=== PATIENT | female | born 1995 | race Caucasian/White ===

== ENCOUNTER 2016-11-30 03:50 | Emergency (ER) | payer MEDICAID ==
--- NOTE | 2016-11-30 04:24 | EDM.PDOC ---
ED HPI GENERAL MEDICAL PROBLEM - General Chief Complaint: Abdominal Pain Stated Complaint: ABD PAIN Time Seen by Provider: 11/30/16 04:10 Source of Information: Reports: Patient History Limitations: Reports: No Limitations - History of Present Illness INITIAL COMMENTS - FREE TEXT/NARRATIVE: 20 yo obese female presents with RUQ abdominal pain with some radiation to her back that began tonight and woke her from sleep. Pain is now starting to subside. Ate a greasy meal for dinner. No hx of the same. Is 20 weeks with her 4th . No fever. Onset: Today Onset Date: 11/30/16 Onset Time: 23:30 Duration: Hour(s):, Improving Location: Reports: Abdomen (RUQ) Quality: Reports: Pressure Severity: Moderate Improves with: Reports: Other (time) Worsens with: Reports: Other (? greasy food) Context: Reports: Other (high risk for gallbladder dz) Associated Symptoms: Reports: No Other Symptoms Treatments STATION ATTENDANT: Reports: Other (see below) (none) Other Treatments STATION ATTENDANT: Hot shower. Rest. Respositioning. - Related Data Allergies Allergy/AdvReac Type Severity Reaction Status Date / Time Pumpkin Allergy Hives Uncoded 11/30/16 04:06 Home Meds: Home Meds PNV95/Ferrous Fumarate/FA [ Tablet] 1 each PO DAILY 11/30/16 [History] ED ROS GENERAL - Review of Systems Review Of Systems: See Below Constitutional: Reports: No Symptoms Respiratory: Reports: No Symptoms Cardiovascular: Reports: No Symptoms GI/Abdominal: Reports: Abdominal Pain : Reports: No Symptoms Musculoskeletal: Reports: No Symptoms Skin: Reports: No Symptoms Neurological: Reports: No Symptoms Psychiatric: Reports: No Symptoms ED EXAM, GI/ABD - Physical Exam Exam: See Below Exam Limited By: No Limitations General Appearance: Alert, WD/WN, No Apparent Distress, Obese Eyes: Bilateral: Normal Appearance Ears: Normal External Exam, Normal Canal, Hearing Grossly Normal, Normal TMs Nose: Normal Inspection, Normal Mucosa, No Blood Throat/Mouth: Normal Inspection, Normal Lips, Normal Teeth, Normal Oropharynx, Normal Voice, No Airway Compromise Head: Atraumatic, Normocephalic Neck: Normal Inspection, Supple Respiratory/Chest: No Respiratory Distress, Lungs Clear, Normal Breath Sounds, No Accessory Muscle Use, Chest Non-Tender Cardiovascular: Regular Rate, Rhythm GI/Abdominal Exam: Normal Bowel Sounds, Soft, No Distention, Guarding, Tender ( Over RUQ, gallbladder), Other (obese, striae, gravid). No: Rigid, Rebound, Hernia (Female) Exam: Enlarged Uterus Back Exam: Normal Inspection. No: CVA Tenderness (R), CVA Tenderness (L) Extremities: Pedal Edema (bilaterally without calf pain) Neurological: Alert, Oriented, CN II-XII Intact, Normal Cognition, No Motor/ Sensory Deficits Psychiatric: Normal Affect, Normal Mood Skin Exam: Warm, Dry, Intact, Normal Color, No Rash Lymphatic: No Adenopathy Course - Vital Signs Text/Narrative:: Pain almost gone in the ER without treatment. Last Recorded V/S: Last Vital Signs Temp 36.3 C 11/30/16 03:58 Pulse 94 11/30/16 03:58 Resp 16 11/30/16 03:58 BP 121/75 11/30/16 03:58 Pulse Ox 98 11/30/16 03:58 - Orders/Labs/Meds Labs: Laboratory Tests 11/30/16 11/30/16 Range/Units 04:25 04:25 WBC 7.1 (4.5-12.0) X10-3/uL RBC 3.91 (3.23-5.20) x10(6)uL Hgb 12.0 (11.5-15.5) g/dL Hct 34.9 (30.0-51.3) % MCV 89.2 (80-96) fL MCH 30.8 (27.7-33.6) pg MCHC 34.5 (32.2-35.4) g/dL RDW 13.9 (11.5-15.5) % Plt Count 149 (125-369) X10(3)uL Alkaline Phosphatase 57 (56-112) IU/L Departure - Departure Time of Disposition: 04:46 Disposition: Home, Self-Care 01 Condition: Good Clinical Impression: Gallbladder attack - Discharge Information Forms: ED Department Discharge
[2016-11-30 04:59] VITALS: BP 119/61
== END 2016-11-30 04:53 | disposition home or self-care (01) ==
LOC: FB.ED 03:50
DX: O99.612 Diseases of the digestive system complicating pregnancy, second trimester (principal); K82.8 Other specified diseases of gallbladder; Z91.018 Allergy to other foods; Z3A.20 20 weeks gestation of pregnancy
CPT/HCPCS: 36415; 84075; 85027; 99283

== ENCOUNTER 2017-04-12 06:49 | Inpatient (IN) | payer MEDICAID ==
[2017-04-12] MEDS ORDERED: Misoprostol 25 MCG (1/4 of 100 MCG) Tab VAG ONE (07:03)
[2017-04-12] MEDS ORDERED: Sodium Chloride 0.9% 10 ML Syringe FLUSH PRN (08:09)
--- NOTE | 2017-04-12 09:11 | PCM.LDHP ---
L&D History of Present Illness - General Date of Service: 04/12/17 Admit Problem/Dx: Patient Status Order with Admit Dx/Problem 04/12/17 07:00 Admission Status [Patient Status] [ADT] Routine Admission Diagnosis/Problem Admission Diagnosis/Problem Source of Information: Patient History Limitations: Reports: No Limitations - History of Present Illness Introduction:: 21-year-old at term here for induction. She has a history of macrosomia, history of gestational hypertension previous pregnancies. In this current ,fetus estemated to be at 86% percentile,but she's had two-vessel placenta discovered in the second trimester ultrasound She's being induced at 39 weeks for those reasons. - Related Data Allergies/Adverse Reactions: Allergies Allergy/AdvReac Type Severity Reaction Status Date / Time Pumpkin Allergy Hives Uncoded 04/02/17 21:05 Home Medications: Home Meds PNV95/Ferrous Fumarate/FA [ Tablet] 1 each PO DAILY 11/30/16 [History] Past Medical History Cardiovascular History: Reports: Other (See Below) Other Cardiovascular History: hx of gestational hypertension wiht her 3 previous pregnancies. Gastrointestinal History: Reports: Cholelithiasis, GERD Genitourinary History: Reports: Other (See Below) Other Genitourinary History: hx of HPV infection in 2016 [employer] LE[employer] History: Reports: , Other (See Below) Other OB/BYN History: States this is her fourth ; abnormal pap smear, hx of large babies, Psychiatric History: Reports: Depression, Other (See Below) Other Psychiatric History: states had pp depression after her 2nd delivery for about1-2 months Hematologic History: Reports: Anemia - Infectious Disease History Infectious Disease History: Reports: Chicken Pox - Past Surgical History Oncologic Surgical History: Reports: Other (See Below) Other Oncologic Surgeries/Procedures: cryotherapy for HPV Social & Family History - Family History Family Medical History: Noncontributory - Tobacco Use Smoking Status *Q: Never Smoker Second Hand Smoke Exposure: No - Caffeine Use Caffeine Use: Reports: Coffee - Recreational Drug Use Recreational Drug Use: No H&P Review of Systems - Review of Systems: Review Of Systems: ROS reveals no pertinent complaints other than HPI. L&D Exam - Exam Exam: See Below - Vital Signs Vital Signs: Last Vital Signs Temp Pulse 91 04/12/17 07:02 Resp 18 04/12/17 07:02 BP 134/75 04/12/17 07:02 Pulse Ox 100 04/12/17 07:02 Weight: 106.141 kg - OB Specific Contraction Duration (sec): 0 Contraction Frequency (min): 0 - Exam General: Alert, Oriented HEENT: PERRLA, Conjunctiva Clear, EACs Clear, EOMI, Hearing Intact, Mucosa Moist & [place], Nares Patent, Normal Nasal Septum, Posterior Pharynx Clear, TMs Clear Neck: Supple, Trachea Midline Lungs: Clear to Auscultation, Normal Respiratory Effort Cardiovascular: Regular Rate, Regular Rhythm GI/Abdominal Exam: Normal Bowel Sounds, Soft, Non-Tender, No Organomegaly, No Distention, No Abnormal Bruit, No Mass, Pelvis Stable Rectal Exam: Normal Exam, Normal Rectal Tone Genitourinary: Normal external exam, Normal bimanual exam, Normal speculum exam Back Exam: Normal Inspection, Full Range of Motion Extremities: Normal Inspection, Normal Range of Motion, Non-Tender, No Pedal Edema, Normal Capillary Refill Skin: Warm, Dry, Intact Neurological: Cranial Nerves Intact, Reflexes Equal Bilateral Psychiatric: Alert, Normal Affect, Normal Mood - Problem List (1) Elective induction of labor planned SNOMED Code(s): 668872069 ICD Code: [id number] - Status: Acute Current Visit: Yes (2) H/O macrosomia in infant in prior , currently SNOMED Code(s): 565098434 ICD Code: O09.299 - SUPRVSN OF PREG W POOR REPRODCTV OR OBSTET HISTORY, UNSP TRI Status: Acute Current Visit: Yes (3) History of pre-eclampsia SNOMED Code(s): 852287464535201 ICD Code: Z87.59 - PERSONAL HISTORY OF COMP OF PREG, CHLDBRTH AND THE PUERP Status: Acute Current Visit: Yes (4) Obesity SNOMED Code(s): 436722114 ICD Code: E66.9 - OBESITY, UNSPECIFIED Status: Acute Current Visit: Yes (5) Two vessel umbilical cord in gomez , antepartum SNOMED Code(s): 612680918 ICD Code: O09.899 - SUPERVISION OF OTHER HIGH RISK PREGNANCIES, UNSP TRIMESTER Status: Acute Current Visit: Yes Problem List Initiated/Reviewed/Updated: Yes Orders Last 24hrs: Active Orders 24 hr Category Date Time Status Admission Status [Patient Status] [ADT] Routine ADT 04/12/17 07:00 Active Communication Order [RC] ASDIRECTED Care 04/12/17 08:11 Active Communication Order [RC] ASDIRECTED Care 04/12/17 08:11 Active Communication Order [RC] ASDIRECTED Care 04/12/17 08:11 Active Communication Order [RC] ASDIRECTED Care 04/12/17 08:11 Active Notify Provider [RC] PRN Care 04/12/17 08:11 Active Notify Provider [RC] STAT Care 04/12/17 08:11 Active Vital Signs [RC] PER UNIT ROUTINE Care 04/12/17 08:11 Active Nothing per Oral Now Diet [DIET] Diet 04/12/17 Breakfast Active Sodium Chloride 0.9% [Saline Flush] Med 04/12/17 08:09 Active 10 ml FLUSH ASDIRECTED PRN Peripheral IV Insertion Adult [OM.PC] Urgent Oth 04/12/17 08:09 Ordered Code Status [Resuscitation Status] Routine Resus Stat 04/12/17 08:11 Ordered Medication Orders Sodium Chloride (Saline Flush) 10 ml FLUSH ASDIRECTED PRN PRN Reason: Keep Vein Open Assessment/Plan Comment:: We'll start with Cytotec induction, and then Pitocin. Risks and benefits of the medications and induction proceeded been discussed with the family and in agreement.
[2017-04-12] MEDS ORDERED: Oxytocin/Normal Saline 10 UNIT/1,000 ML BAG IV SCH (12:15)
[2017-04-12] MEDS: Lactated Ringers 1,000 ML IV SCH ×2 (13:43→19:39)
[2017-04-12] MEDS ORDERED: ePHEDrine 50 MG/ML SDV IVPUSH PRN ×2 (15:15→16:57)
[2017-04-12] MEDS ORDERED: Naloxone 0.4 MG/ML SDV IVPUSH PRN ×2 (15:15→16:57)
[2017-04-12] MEDS ORDERED: fentaNYL 100 MCG/2 ML SDV EPIDUR ONE ×2 (15:37)
[2017-04-12] MEDS ORDERED: fentaNYL 300 MCG in Ropivacaine 200 ML EPIDUR ONE (15:37)
[2017-04-12] MEDS ORDERED: hydrOXYzine HCl 50 MG/ML SDV IM PRN ×2 (16:57)
[2017-04-12] MEDS ORDERED: Naloxone 0.4 MG in Sodium Chloride 0.9% 100 ML IV PRN (16:57)
[2017-04-12] MEDS ORDERED: Promethazine 25 MG/ML SDV IV PRN (16:57)
[2017-04-12] MEDS ORDERED: diphenhydrAMINE 50 MG/ML SDV IVPUSH PRN (16:57)
[2017-04-12] MEDS ORDERED: Ondansetron 4 MG/2 ML SDV IVPUSH PRN (16:59)
[2017-04-12] MEDS ORDERED: Acetaminophen/Codeine 300-30 MG Tab PO PRN (18:10)
--- NOTE | 2017-04-12 18:16 | PCM.DEL ---
L & D Note - General Info Date of Service: 04/12/17 - Delivery Note Labor: Spontaneous, Augmented by Oxytocin Cervical Ripening Method: Prostaglandin E2 Delivery Outcome: Livebirth Delivery Method: Spontaneous Vaginal Delivery-Single Anesthesia Type: Epidural Laceration: None Placenta: Intact, Spontaneous Cord: 2 Vessels Resuscitation Needed: No Delivery Comments (Free Text/Narrative):: Called to bedside. By the time I got there,baby already pushed out. Live male . I then delivered placenta ,2 vessel,intact ,by gentle traction.Small superficial tear,midline,no need for sutures. EBL less 300 cc Induction Criteria - Odell Score Odell Score Dilation: 1-2 cm Odell Score Effacement: 60-70% Odell Score Consistency: Soft Odell Score Cervix Position: Midposition Odell Score Presenting Part: Reports: Cephalic - Induction Gestational Age >/= 39 wks: Yes Estimated Pelvis: Reports: Adequate Reassuring Monitoring Strip: Yes - Augmentation Estimated Pelvis: Reports: Adequate Reassuring Monitoring Strip: Yes - General Info Date of Service: 04/12/17 - Review of Systems General: Reports: No Symptoms HEENT: Reports: No Symptoms Pulmonary: Reports: No Symptoms Cardiovascular: Reports: No Symptoms Gastrointestinal: Reports: No Symptoms Genitourinary: Reports: No Symptoms Musculoskeletal: Reports: No Symptoms Skin: Reports: No Symptoms Neurological: Reports: No Symptoms Psychiatric: Reports: No Symptoms - Patient Data Vitals - Most Recent: Last Vital Signs Temp Pulse 91 04/12/17 07:02 Resp 18 04/12/17 07:02 BP 134/75 04/12/17 07:02 Pulse Ox 100 04/12/17 07:02 Weight - Most Recent: 106.141 kg I&O - Last 24 Hours: Intake & Output 04/12/17 04/12/17 04/12/17 06:59 14:59 22:59 Output Total 5 Balance -5 Med Orders - Current: Current Medications Acetaminophen/Codeine Phosphate (Tylenol With Codeine No.3 300mg/30mg) 1 tab PO Q4H PRN PRN Reason: Pain (moderate 4-6) Diphenhydramine HCl (Benadryl) 25 mg IVPUSH ASDIRECTED PRN PRN Reason: PRURITUS Ephedrine Sulfate (Ephedrine Sulfate) 5 mg IVPUSH ONETIME PRN PRN Reason: HYPOTENSION Ephedrine Sulfate (Ephedrine Sulfate) 5 mg IVPUSH ASDIRECTED PRN PRN Reason: HYPOTENSION Hydroxyzine HCl (Vistaril) 0 mg IM Q6H PRN PRN Reason: PRURITIS Hydroxyzine HCl (Vistaril) 0 mg IM Q4H PRN PRN Reason: N/V Oxytocin/Sodium Chloride (Pitocin In Ns 10 Units/1,000 Ml) 10 unit in 1,000 mls @ 12 mls/hr IV TITRATE ANASTACIO; 2 MUNITS/MIN PRN Reason: Protocol Last Titration: 04/12/17 13:42 Dose: 6 munits/min, 36 mls/hr Lactated Ringer's (Ringers, Lactated) 1,000 mls @ 125 mls/hr IV ASDIRECTED ANASTACIO Last Admin: 04/12/17 13:43 Dose: 125 mls/hr Naloxone HCl 0.4 mg/ Sodium (Chloride) 101 mls @ 25 mls/hr IV ASDIRECTED PRN PRN Reason: PER ORDER OF ANESTHESIA Ibuprofen (Motrin) 600 mg PO Q4H PRN PRN Reason: Pain Naloxone HCl (Narcan) 0.1 mg IVPUSH ONETIME PRN PRN Reason: Sedation Naloxone HCl (Narcan) 0.1 mg IVPUSH ASDIRECTED PRN PRN Reason: RESPIRATORY STATUS Ondansetron HCl (Zofran) 4 mg IVPUSH Q6H PRN PRN Reason: NAUSEA/VOMITING Promethazine HCl (Phenergan) 6.25 - 12.5 mg IV Q4H PRN PRN Reason: NAUSEA AND VOMITING Sodium Chloride (Saline Flush) 10 ml FLUSH ASDIRECTED PRN PRN Reason: Keep Vein Open Last Admin: 04/12/17 11:58 Dose: 10 ml Discontinued Medications Misoprostol (Cytotec) 25 mcg VAG ONETIME ONE Stop: 04/12/17 07:04 Last Admin: 04/12/17 08:15 Dose: 25 mcg - Exam General: Alert, Oriented HEENT: Pupils Equal, Pupils Reactive, EOMI, Mucous Membr. Moist/[place] Neck: Supple Lungs: Clear to Auscultation, Normal Respiratory Effort Cardiovascular: Regular Rate, Regular Rhythm GI/Abdominal Exam: Normal Bowel Sounds, Soft, Non-Tender, No Organomegaly, No Distention, No Abnormal Bruit, No Mass, Pelvis Stable (Female) Exam: Normal External Exam, Normal Speculum Exam, Normal Bimanual Exam Back Exam: Normal Inspection, Full Range of Motion Extremities: Normal Inspection, Normal Range of Motion, Non-Tender, No Pedal Edema, Normal Capillary Refill Skin: Warm, Dry, Intact Wound/Incisions: Healing Well Neurological: No New Focal Deficit Psy/Mental Status: Alert, Normal Affect, Normal Mood - Problem List & Annotations (1) Elective induction of labor planned SNOMED Code(s): 462396198 Code(s): JTT5153 - Status: Acute Current Visit: Yes (2) H/O macrosomia in in prior , currently SNOMED Code(s): 538592684 Code(s): O09.299 - SUPRVSN OF PREG W POOR REPRODCTV OR OBSTET HISTORY, UNSP TRI Status: Acute Current Visit: Yes (3) History of pre-eclampsia SNOMED Code(s): 207234156519824 Code(s): Z87.59 - PERSONAL HISTORY OF COMP OF PREG, CHLDBRTH AND THE PUERP Status: Acute Current Visit: Yes (4) Obesity SNOMED Code(s): 284712250 Code(s): E66.9 - OBESITY, UNSPECIFIED Status: Acute Current Visit: Yes (5) Two vessel umbilical cord in gomez , antepartum SNOMED Code(s): 180102174 Code(s): O09.899 - SUPERVISION OF OTHER HIGH RISK PREGNANCIES, UNSP TRIMESTER Status: Acute Current Visit: Yes (6) Normal delivery SNOMED Code(s): 77056537 Code(s): O80 - ENCOUNTER FOR FULL-TERM UNCOMPLICATED DELIVERY; Z37.9 - OUTCOME OF DELIVERY, UNSPECIFIED Status: Acute Current Visit: Yes - Problem List Review Problem List Initiated/Reviewed/Updated: Yes - My Orders Last 24 Hours: My Active Orders 04/12/17 08:09 Sodium Chloride 0.9% [Saline Flush] 10 ml FLUSH ASDIRECTED PRN Peripheral IV Insertion Adult [OM.PC] Urgent 04/12/17 08:11 Communication Order [RC] ASDIRECTED Communication Order [RC] ASDIRECTED Communication Order [RC] ASDIRECTED Communication Order [RC] ASDIRECTED Notify Provider [RC] PRN Notify Provider [RC] STAT Vital Signs [RC] PER UNIT ROUTINE Code Status [Resuscitation Status] Routine 04/12/17 12:15 Lactated Ringers [Ringers, Lactated] 1,000 ml IV ASDIRECTED Oxytocin/Normal Saline [Pitocin in NS 10 UNITS/1,000 ML] 10 unit in 1,000 ml IV TITRATE 04/12/17 15:15 Naloxone [Narcan] 0.1 mg IVPUSH ONETIME PRN ePHEDrine [ePHEDrine Sulfate] 5 mg IVPUSH ONETIME PRN 04/12/17 16:30 Admission Status [Patient Status] [ADT] Routine 04/12/17 18:10 Vital Signs [RC] PFP Acetaminophen/Codeine [Tylenol with Codeine No.3 300MG/30MG] 1 tab PO Q4H PRN Ibuprofen [Motrin] 600 mg PO Q4H PRN 04/12/17 Breakfast Nothing per Oral Now Diet [DIET] 04/13/17 05:11 CBC W/O DIFF,HEMOGRAM [HEME] AM - Plan Plan:: Routine post care.
[2017-04-12] MEDS: Ibuprofen 600 MG Tab PO PRN (21:35)
[2017-04-13] MEDS: Ibuprofen 600 MG Tab PO PRN ×2 (02:10→13:02)
--- NOTE | 2017-04-13 08:39 | PCM.PNPP ---
- General Info Date of Service: 04/13/17 Functional Status: Reports: Pain Controlled, Tolerating Diet - Review of Systems General: Reports: No Symptoms HEENT: Reports: No Symptoms Pulmonary: Reports: No Symptoms Cardiovascular: Reports: No Symptoms Gastrointestinal: Reports: No Symptoms Genitourinary: Reports: No Symptoms Musculoskeletal: Reports: No Symptoms Skin: Reports: No Symptoms Neurological: Reports: No Symptoms Psychiatric: Reports: No Symptoms - General Info Date of Service: 04/13/17 - Patient Data Vital Signs - Most Recent: Last Vital Signs Temp 98.2 F 04/13/17 00:00 Pulse 73 04/12/17 21:30 Resp 18 04/13/17 00:00 BP 123/61 04/13/17 00:00 Pulse Ox 98 04/13/17 00:00 Weight - Most Recent: 106.141 kg I&O - Last 24 Hours: Intake & Output 04/12/17 04/13/17 04/13/17 22:59 06:59 14:59 Intake Total 1923 Output Total 5 Balance 1918 Lab Results - Last 24 Hours: Laboratory Results - last 24 hr 04/13/17 Range/Units 06:15 WBC 8.9 (4.5-12.0) X10-3/uL RBC 3.77 (3.23-5.20) x10(6)uL Hgb 9.7 L (11.5-15.5) g/dL Hct 30.0 (30.0-51.3) % MCV 79.7 L (80-96) fL MCH 25.7 L (27.7-33.6) pg MCHC 32.2 (32.2-35.4) g/dL RDW 16.4 H (11.5-15.5) % Plt Count 126 (125-369) X10(3)uL Med Orders - Current: Current Medications Acetaminophen/Codeine Phosphate (Tylenol With Codeine No.3 300mg/30mg) 1 tab PO Q4H PRN PRN Reason: Pain (moderate 4-6) Ephedrine Sulfate (Ephedrine Sulfate) 5 mg IVPUSH ONETIME PRN PRN Reason: HYPOTENSION Oxytocin/Sodium Chloride (Pitocin In Ns 10 Units/1,000 Ml) 10 unit in 1,000 mls @ 12 mls/hr IV TITRATE ANASTACIO; 2 MUNITS/MIN PRN Reason: Protocol Last Titration: 04/12/17 13:42 Dose: 6 munits/min, 36 mls/hr Lactated Ringer's (Ringers, Lactated) 1,000 mls @ 125 mls/hr IV ASDIRECTED ANASTACIO Last Admin: 04/12/17 19:39 Dose: 125 mls/hr Ibuprofen (Motrin) 600 mg PO Q4H PRN PRN Reason: Pain Last Admin: 04/13/17 02:10 Dose: 600 mg Naloxone HCl (Narcan) 0.1 mg IVPUSH ONETIME PRN PRN Reason: Sedation Sodium Chloride (Saline Flush) 10 ml FLUSH ASDIRECTED PRN PRN Reason: Keep Vein Open Last Admin: 04/12/17 11:58 Dose: 10 ml Discontinued Medications Diphenhydramine HCl (Benadryl) 25 mg IVPUSH ASDIRECTED PRN PRN Reason: PRURITUS Ephedrine Sulfate (Ephedrine Sulfate) 5 mg IVPUSH ASDIRECTED PRN PRN Reason: HYPOTENSION Hydroxyzine HCl (Vistaril) 0 mg IM Q6H PRN PRN Reason: PRURITIS Hydroxyzine HCl (Vistaril) 0 mg IM Q4H PRN PRN Reason: N/V Naloxone HCl 0.4 mg/ Sodium (Chloride) 101 mls @ 25 mls/hr IV ASDIRECTED PRN PRN Reason: PER ORDER OF ANESTHESIA Misoprostol (Cytotec) 25 mcg VAG ONETIME ONE Stop: 04/12/17 07:04 Last Admin: 04/12/17 08:15 Dose: 25 mcg Naloxone HCl (Narcan) 0.1 mg IVPUSH ASDIRECTED PRN PRN Reason: RESPIRATORY STATUS Ondansetron HCl (Zofran) 4 mg IVPUSH Q6H PRN PRN Reason: NAUSEA/VOMITING Promethazine HCl (Phenergan) 6.25 - 12.5 mg IV Q4H PRN PRN Reason: NAUSEA AND VOMITING - Interaction Support Person: Significant Other - Recovery Exam Fundal Tone: Firm Fundal Level: 1 Fingerbreadths Above Umbilicus Fundal Placement: Midline Lochia Amount: Moderate Lochia Color: Rubra/Red Perineum Description: Intact, Minimal Bruising/Swelling Episiotomy/Laceration: None Bladder Status: Voiding Urinary Elimination: Not Voiding - Exam General: Alert, Oriented HEENT: Pupils Equal Neck: Supple Lungs: Clear to Auscultation, Normal Respiratory Effort Cardiovascular: Regular Rate, Regular Rhythm GI/Abdominal Exam: Normal Bowel Sounds, Soft, Non-Tender, No Organomegaly, No Distention, No Abnormal Bruit, No Mass, Pelvis Stable Extremities: Normal Inspection, Normal Range of Motion, Non-Tender, No Pedal Edema, Normal Capillary Refill Skin: Warm, Dry, Intact Wound/Incisions: Healing Well Neurological: No New Focal Deficit Psy/Mental Status: Alert, Normal Affect, Normal Mood - Problem List & Annotations (1) Normal delivery SNOMED Code(s): 10250223 Code(s): O80 - ENCOUNTER FOR FULL-TERM UNCOMPLICATED DELIVERY; Z37.9 - OUTCOME OF DELIVERY, UNSPECIFIED Status: Acute Current Visit: Yes (2) Elective induction of labor planned SNOMED Code(s): 358342848 Code(s): RMS5548 - Status: Acute Current Visit: Yes (3) H/O macrosomia in in prior , currently SNOMED Code(s): 226506183 Code(s): O09.299 - SUPRVSN OF PREG W POOR REPRODCTV OR OBSTET HISTORY, UNSP TRI Status: Acute Current Visit: Yes (4) History of pre-eclampsia SNOMED Code(s): 279860949856730 Code(s): Z87.59 - PERSONAL HISTORY OF COMP OF PREG, CHLDBRTH AND THE PUERP Status: Acute Current Visit: Yes (5) Obesity SNOMED Code(s): 369655696 Code(s): E66.9 - OBESITY, UNSPECIFIED Status: Acute Current Visit: Yes (6) Two vessel umbilical cord in gomez , antepartum SNOMED Code(s): 047002974 Code(s): O09.899 - SUPERVISION OF OTHER HIGH RISK PREGNANCIES, UNSP TRIMESTER Status: Acute Current Visit: Yes - Problem List Review Problem List Initiated/Reviewed/Updated: Yes - My Orders Last 24 Hours: My Active Orders 04/12/17 08:09 Sodium Chloride 0.9% [Saline Flush] 10 ml FLUSH ASDIRECTED PRN Peripheral IV Insertion Adult [OM.PC] Urgent 04/12/17 08:11 Communication Order [RC] ASDIRECTED Communication Order [RC] ASDIRECTED Communication Order [RC] ASDIRECTED Communication Order [RC] ASDIRECTED Vital Signs [RC] PER UNIT ROUTINE Code Status [Resuscitation Status] Routine 04/12/17 12:15 Lactated Ringers [Ringers, Lactated] 1,000 ml IV ASDIRECTED Oxytocin/Normal Saline [Pitocin in NS 10 UNITS/1,000 ML] 10 unit in 1,000 ml IV TITRATE 04/12/17 15:15 Naloxone [Narcan] 0.1 mg IVPUSH ONETIME PRN ePHEDrine [ePHEDrine Sulfate] 5 mg IVPUSH ONETIME PRN 04/12/17 16:30 Admission Status [Patient Status] [ADT] Routine 04/12/17 18:10 Vital Signs [RC] PFP Acetaminophen/Codeine [Tylenol with Codeine No.3 300MG/30MG] 1 tab PO Q4H PRN Ibuprofen [Motrin] 600 mg PO Q4H PRN 04/13/17 Breakfast Regular Diet [DIET] - Plan Plan:: Routine post care.DC in AM
[2017-04-14] MEDS: Ibuprofen 600 MG Tab PO PRN (08:20)
--- NOTE | 2017-04-14 08:36 | PCM.DCSUM1 ---
Discharge Summary - Hospital Course Free Text/Narrative:: Vaginal delivery,did well. - Discharge Data Discharge Date: 04/14/17 Discharge Disposition: Home, Self-Care 01 Condition: Good - Discharge Diagnosis/Problem(s) (1) Normal delivery SNOMED Code(s): 09199000 ICD Code: O80 - ENCOUNTER FOR FULL-TERM UNCOMPLICATED DELIVERY; Z37.9 - OUTCOME OF DELIVERY, UNSPECIFIED Status: Acute Current Visit: Yes (2) Elective induction of labor planned SNOMED Code(s): 926413061 ICD Code: [id number] - Status: Acute Current Visit: Yes (3) H/O macrosomia in in prior , currently SNOMED Code(s): 542943858 ICD Code: O09.299 - SUPRVSN OF PREG W POOR REPRODCTV OR OBSTET HISTORY, UNSP TRI Status: Acute Current Visit: Yes (4) History of pre-eclampsia SNOMED Code(s): 903748410283911 ICD Code: Z87.59 - PERSONAL HISTORY OF COMP OF PREG, CHLDBRTH AND THE PUERP Status: Acute Current Visit: Yes (5) Obesity SNOMED Code(s): 507712574 ICD Code: E66.9 - OBESITY, UNSPECIFIED Status: Acute Current Visit: Yes (6) Two vessel umbilical cord in gomez , antepartum SNOMED Code(s): 966183246 ICD Code: O09.899 - SUPERVISION OF OTHER HIGH RISK PREGNANCIES, UNSP TRIMESTER Status: Acute Current Visit: Yes - Discharge Plan Home Medications: Home Meds PNV95/Ferrous Fumarate/FA [ Tablet] 1 each PO DAILY 11/30/16 [History] Patient Handouts: , Depression and Baby Blues, Home Care Instructions for Mom, Vaginal Delivery, Care After, Care After Vaginal Delivery, Hand Washing - General Info Date of Service: 04/14/17 Functional Status: Reports: Pain Controlled - Review of Systems General: Reports: No Symptoms HEENT: Reports: No Symptoms Pulmonary: Reports: No Symptoms Cardiovascular: Reports: No Symptoms Gastrointestinal: Reports: No Symptoms Genitourinary: Reports: No Symptoms Musculoskeletal: Reports: No Symptoms Skin: Reports: No Symptoms Neurological: Reports: No Symptoms Psychiatric: Reports: No Symptoms - Patient Data Vitals - Most Recent: Last Vital Signs Temp 99.1 F 04/14/17 00:00 Pulse 82 04/14/17 00:00 Resp 17 04/14/17 00:00 BP 124/62 04/14/17 00:00 Pulse Ox 99 04/14/17 00:00 Weight - Most Recent: 106.141 kg Med Orders - Current: Current Medications Acetaminophen/Codeine Phosphate (Tylenol With Codeine No.3 300mg/30mg) 1 tab PO Q4H PRN PRN Reason: Pain (moderate 4-6) Ephedrine Sulfate (Ephedrine Sulfate) 5 mg IVPUSH ONETIME PRN PRN Reason: HYPOTENSION Oxytocin/Sodium Chloride (Pitocin In Ns 10 Units/1,000 Ml) 10 unit in 1,000 mls @ 12 mls/hr IV TITRATE ANASTACIO; 2 MUNITS/MIN PRN Reason: Protocol Last Titration: 04/12/17 13:42 Dose: 6 munits/min, 36 mls/hr Lactated Ringer's (Ringers, Lactated) 1,000 mls @ 125 mls/hr IV ASDIRECTED ANASTACIO Last Admin: 04/12/17 19:39 Dose: 125 mls/hr Ibuprofen (Motrin) 600 mg PO Q4H PRN PRN Reason: Pain Last Admin: 04/14/17 08:20 Dose: 600 mg Naloxone HCl (Narcan) 0.1 mg IVPUSH ONETIME PRN PRN Reason: Sedation Sodium Chloride (Saline Flush) 10 ml FLUSH ASDIRECTED PRN PRN Reason: Keep Vein Open Last Admin: 04/12/17 11:58 Dose: 10 ml Discontinued Medications Diphenhydramine HCl (Benadryl) 25 mg IVPUSH ASDIRECTED PRN PRN Reason: PRURITUS Ephedrine Sulfate (Ephedrine Sulfate) 5 mg IVPUSH ASDIRECTED PRN PRN Reason: HYPOTENSION Hydroxyzine HCl (Vistaril) 0 mg IM Q6H PRN PRN Reason: PRURITIS Hydroxyzine HCl (Vistaril) 0 mg IM Q4H PRN PRN Reason: N/V Naloxone HCl 0.4 mg/ Sodium (Chloride) 101 mls @ 25 mls/hr IV ASDIRECTED PRN PRN Reason: PER ORDER OF ANESTHESIA Misoprostol (Cytotec) 25 mcg VAG ONETIME ONE Stop: 04/12/17 07:04 Last Admin: 04/12/17 08:15 Dose: 25 mcg Naloxone HCl (Narcan) 0.1 mg IVPUSH ASDIRECTED PRN PRN Reason: RESPIRATORY STATUS Ondansetron HCl (Zofran) 4 mg IVPUSH Q6H PRN PRN Reason: NAUSEA/VOMITING Promethazine HCl (Phenergan) 6.25 - 12.5 mg IV Q4H PRN PRN Reason: NAUSEA AND VOMITING - Exam General: Reports: Alert, Oriented HEENT: Reports: Pupils Equal, Pupils Reactive, EOMI, Mucous Membr. Moist/[place] Neck: Reports: Supple Lungs: Reports: Clear to Auscultation, Normal Respiratory Effort Cardiovascular: Reports: Regular Rate, Regular Rhythm GI/Abdominal Exam: Normal Bowel Sounds, Soft, Non-Tender, No Organomegaly, No Distention, No Abnormal Bruit, No Mass, Pelvis Stable (Female) Exam: Normal External Exam, Normal Speculum Exam, Normal Bimanual Exam Rectal (Female) Exam: Normal Exam, Normal Rectal Tone Back Exam: Reports: Normal Inspection, Full Range of Motion Extremities: Normal Inspection, Normal Range of Motion, Non-Tender, No Pedal Edema, Normal Capillary Refill Skin: Reports: Warm, Dry, Intact Wound/Incisions: Reports: Healing Well Neurological: Reports: No New Focal Deficit Psy/Mental Status: Reports: Alert, Normal Affect, Normal Mood *Q Meaningful Use (DIS) - VTE *Q VTE Criteria *Q: - Stroke *Q Stroke Criteria *Q: - AMI *Q AMI Criteria *Q:
[2017-04-14 11:28] VITALS: BP 140/74
== END 2017-04-14 09:45 | disposition home or self-care (01) | DRG 775 ==
LOC: FB.OB 06:49 → OBSVTOIN 16:30 → FB.OB 16:30
PROVIDERS: ADMIT Family Medicine; ATTEND Family Medicine
PROC: 10E0XZZ Delivery of Products of Conception, External Approach (ICD-10-PCS; principal; 2017-04-12)
PROC: 00HU33Z Insertion of Infusion Device into Spinal Canal, Percutaneous Approach (ICD-10-PCS; 2017-04-12)
PROC: 3E0R3BZ Introduction of Anesthetic Agent into Spinal Canal, Percutaneous Approach (ICD-10-PCS; 2017-04-12)
DX: O36.63X0 Maternal care for excessive fetal growth, third trimester, not applicable or unspecified (principal); Z37.0 Single live birth; Z3A.39 39 weeks gestation of pregnancy; O43.893 Other placental disorders, third trimester; Z91.018 Allergy to other foods; Z87.59 Personal history of other complications of pregnancy, childbirth and the puerperium; O99.214 Obesity complicating childbirth
CPT/HCPCS: 36415; 59409; 85027; A9270-GY; J2590; J2795; J3010; J7050; J7120

== ENCOUNTER 2017-06-03 03:34 | Emergency (ER) | payer MEDICAID ==
[2017-06-03] MEDS ORDERED: HYDROmorphone 2 MG/ML SDV IM ONE (04:25)
[2017-06-03] MEDS ORDERED: Ondansetron 4 MG Tab.DIS PO ONE (04:26)
[2017-06-03 05:02] VITALS: BP 138/89
[2017-06-03] MEDS ORDERED: Cephalexin 500 MG Cap PO SCH (09:00)
--- NOTE | 2017-06-05 11:15 | ER ---
DATE SEEN: 06/03/2017 TIME SEEN: The patient was seen at 0352 hours. HISTORY OF PRESENT ILLNESS: Mena is a 21-year-old 4, para 4-0-0-4 woman, who is 3 weeks , and she has noted onset of gallbladder pain. She has had this before and has not had the gallbladder taken out as she was and also had to toughen it out while she is breast-feeding other babies too. She is currently breast-feeding now, and is feeling strongly that she would like very much to have the gallbladder removed. She has no fever. Vomited once an hour and a half before coming to the hospital and she had onset of abdominal discomfort this evening. She felt perhaps this is related to eating popcorn that has been buttered. Approximately midnight, she had onset of abdominal discomfort. Two weeks ago, had a gallbladder attack. Previous back pain, previous kidney stones. No previous C-sections. MEDICATIONS: 1. vitamins. 2. Ferrous fumarate. PAST MEDICAL HISTORY: Obesity and previous gallbladder attacks. Otherwise, past medical history is negative. REVIEW OF SYSTEMS: Negative except as noted above. PHYSICAL EXAMINATION: VITAL SIGNS: Blood pressure 145/97, repeat blood pressure 138/89; heart rate 73; respirations not taken; 100% oxygen saturation; 97.2 degrees temperature. GENERAL: The patient is overweight. Pleasant woman in mild distress. She complains it is 5/10 compared to Labor and Delivery. She looks like she is a stoic 2/10. HEENT: Negative. CARDIORESPIRATORY: Lungs are clear without rales, rhonchi, or wheezes. HEART: S1, S2. No irregular rate and rhythm. No sinus tachycardia. ABDOMEN: Moderate guarding, right upper quadrant, but the remainder of other quadrants negative. Hernandez sign - pressure in this area causes pain. No CVA percussion tenderness. LABORATORY STUDIES: Urinalysis; large esterase, 20-30 wbc's, and many bacteria - urinary tract infection. The CBC is normal with a hemoglobin of 12.8, white count 6300, and normal differential. She has mild microcytosis. Hypochromia, reflecting the recovery of her hemopoietic system after , usual blood loss. ASSESSMENT: 1. Probable cholelithiasis, cholecystitis. Gallbladder pain precipitated with eating buttered popcorn this evening. 2. Obesity. 3. Urinary tract infection. PLAN: 1. The patient prescribed Percocet. If she uses, she will have to dump the breast milk for 6 hours and she has "plenty of breast milk in the refrigerator stored, if she needs it," so this was not a problem. 2. The Keflex can change the stool frequency or increased diarrhea in the child, but it is not considered to cross over to the breasts 1% to 3%, which is well below the RIN of 25% and 10% (relative infant dose). 3. The Percocet is above the RIN dose and is not felt that she could breast- feed and use Percocet at the same time. She is aware of this and she will defer from breast-feeding if she use the medicine for pain, otherwise not use Percocet altogether. 4. The patient to follow up with ultrasound on 06/05/2016. I will communicate with her the results of this and she apparently goes to the [facility], and I will discuss with the [facility] surgeon and make arrangements accordingly. 5. ADDENDUM Monday06/05/17 gall stones noted , with sludge, patient to contact her Surgeon for further discussion DIAGNOSES: 1. Gallbladder pain secondary to cholecystitis an cholelithiasis 2. No leukocytosis. 3. Urinary tract infection. 4. Breast-feeding. 5. Three to four weeks . /[id number] JARRETT/NOBLE LEUNG
--- NOTE | 2017-06-06 17:21 | ER ---
DATE SEEN: 06/03/2017 The patient had an ultrasound this morning. She had a 0.45 thick gallbladder, gallbladder sludge and had also a 2 cm size stone in the neck of the gallbladder. The patient will be following up with the surgeon and perhaps see a surgeon today. She would like the surgical removal of this gallbladder stone. She had some mild on and off discomfort this weekend and she looks forward to have the stone removed. DIAGNOSIS: Cholelithiasis. /[id number] JARRETT/NOBLE
== END 2017-06-03 04:57 | disposition home or self-care (01) ==
LOC: FB.ED 03:34
DX: O99.63 Diseases of the digestive system complicating the puerperium (principal); K80.10 Calculus of gallbladder with chronic cholecystitis without obstruction; O86.20 Urinary tract infection following delivery, unspecified; O99.215 Obesity complicating the puerperium; E66.9 Obesity, unspecified; Z87.442 Personal history of urinary calculi
CPT/HCPCS: 36415; 81001; 85025; 87086; 87088; 87186; 96372; 99283; A9270-GY; J1170

== ENCOUNTER 2017-06-13 08:23 | Day surgery (SDC) | payer MEDICAID ==
[2017-06-13] MEDS ORDERED: Sodium Chloride 0.9% 10 ML Syringe FLUSH PRN (08:45)
[2017-06-13] MEDS ORDERED: Lactated Ringers 1,000 ML IV SCH (08:45)
[2017-06-13] MEDS: cefOXitin 2 GM Vial IV ONE ×2 (09:09→10:27)
[2017-06-13] MEDS ORDERED: Ondansetron 4 MG/2 ML SDV IVPUSH ONE (09:30)
[2017-06-13] MEDS ORDERED: fentaNYL 100 MCG/2 ML SDV IV ONE (09:30)
[2017-06-13] MEDS ORDERED: Sugammadex Sodium 200 MG/2 ML VIAL IV ONE (09:30)
[2017-06-13] MEDS ORDERED: Succinylcholine 200 MG/10 ML MDV IV ONE (09:30)
[2017-06-13] MEDS ORDERED: Propofol 200 MG/20 ML SDV IV ONE (09:30)
[2017-06-13] MEDS ORDERED: Rocuronium 100 MG/10 ML MDV IV ONE (09:30)
[2017-06-13] MEDS ORDERED: Midazolam 1 MG/ML 2 ML SDV IV ONE (09:30)
[2017-06-13] MEDS ORDERED: Dexamethasone 4 MG/ML 5 ML MDV IVPUSH ONE (09:30)
[2017-06-13] MEDS ORDERED: diphenhydrAMINE 50 MG/ML SDV IV ONE (09:30)
[2017-06-13] MEDS ORDERED: HYDROmorphone 2 MG/ML SDV IV ONE (09:30)
[2017-06-13] MEDS ORDERED: Lactated Ringers 1,000 ML IV ONE (09:30)
[2017-06-13] MEDS ORDERED: Ketorolac 30 MG/ML SDV IVPUSH ONE (09:30)
[2017-06-13] MEDS ORDERED: cefOXitin 2 GM in Sodium Chloride 0.9% 100 ML IV ONE (10:00)
[2017-06-13] MEDS ORDERED: Lidocaine 1% with EPINEPHrine 1:100,000 20 ML MDV INJECT ONE (10:58)
[2017-06-13] MEDS ORDERED: Bupivacaine 0.5% 30 ML SDV INJECT ONE (10:59)
[2017-06-13] MEDS ORDERED: Acetaminophen/HYDROcodone 325-5 MG Tab PO PRN (11:22)
--- NOTE | 2017-06-13 11:27 | PCM.OPNOTE ---
- General Post-Op/Procedure Note Date of Surgery/Procedure: 06/13/17 Operative Procedure(s): lap cholecystectomy Findings: gallbladder and stone Pre Op Diagnosis: sx gallstones Post-Op Diagnosis: Same Anesthesia Technique: General ET Tube, Local (9 ml 1%lido with epi /0.5% buvipicaine) Primary Surgeon: Tim Garvey Anesthesia Provider: Saige Gregorio Pathology: gallbladder and contents Complications: None Condition: Good Free Text/Narrative:: see dictation
[2017-06-13 13:47] VITALS: BP 134/80
--- NOTE | 2017-06-13 17:53 | OR ---
DATE OF OPERATION: 06/13/2017 SURGEON: Tim Garvey MD PROCEDURE PERFORMED: Laparoscopic cholecystectomy. PREOPERATIVE DIAGNOSIS: Symptomatic gallstones. POSTOPERATIVE DIAGNOSIS: Symptomatic gallstones. INDICATIONS FOR PROCEDURE: This is a 21-year-old white female who was referred. She has known history of cholelithiasis that actually gave her some difficulties during her recent , still continues to have symptoms of biliary colic and was offered and accepted a laparoscopic cholecystectomy. DESCRIPTION OF OPERATION: After an excellent IV sedation was administered, the patient was prepped and draped in usual sterile manner. A local mixture of 1% lidocaine with epinephrine 0.5% bupivacaine was used to infiltrate the area just below the umbilicus. A small vertical midline incision was made with a #15 scalpel blade. The underlying subcu fat was divided using electrocautery. Two stay sutures were placed on either side of the midline to the rectus sheath. The midline was then incised and the abdominal cavity was entered. A 10.5 mm Mica trocar was then inserted into the patient's abdomen which was then insufflated to 15 mmHg using carbon dioxide. The patient was placed in reverse Trendelenburg with an airplane to the left. Three 5 mm ports were placed, one in the midline epigastrium and two below the right costal margin at the level of the midclavicular and anterior axillary line. This was done by infiltrating with local making a stab incision through the skin and inserting our trocars. A total of 9 mL was used. The gallbladder was then retracted into a cephalad fashion. The infundibulum was grasped and careful blunt dissection was carried out exposing the cystic duct and the cystic artery. There was also a piece of peritoneum that was anterior to the duct and artery that appeared to possibly have a small vessel. This was also clipped along with the cystic duct and the cystic artery. This was done after tracking the peritoneum up along the sidewall of the gallbladder and ensuring that this out of ductal structure. Two clips were placed proximally and one distally on the cystic duct and cystic artery. These structures were then transected. L-Hook cautery dissection was used to dissect the gallbladder free and the specimen was passed into a bag. Bleeding was controlled with electrocautery and after irrigating the bed of the gallbladder, ensured excellent hemostasis, trocars were removed and the pneumoperitoneum was released. The periumbilical fascial defect was closed with a [id number] 0 Vicryl and the 2 stay sutures were tied to each other. The skin was closed with justin. Needle, sponge, and instrument counts were reported as correct. /[id number] /MODL
== END 2017-06-13 13:30 | disposition home or self-care (01) ==
LOC: FB.SDS 08:23
PROVIDERS: ATTEND Surgery
DX: K80.10 Calculus of gallbladder with chronic cholecystitis without obstruction (principal); F32.9 Major depressive disorder, single episode, unspecified; K21.9 Gastro-esophageal reflux disease without esophagitis; E66.9 Obesity, unspecified; Z68.37 Body mass index [BMI] 37.0-37.9, adult; Z91.018 Allergy to other foods; Z79.899 Other long term (current) drug therapy
CPT/HCPCS: 81025; 88304; A9270-GY; C9399; J0330; J0694; J1100; J1170; J1200; J1885; J2250; J2405; J2704; J3010; J7120